=== PATIENT | male | born 2000 | race Two or more races ===

== ENCOUNTER 2023-06-22 10:15 | Emergency (ER) | payer OTHER ==
[~2023-06-22] VITALS: Ht 157.5 cm; Wt 54.4 kg
== END 2023-06-22 12:13 | disposition home or self-care (01) ==
LOC: ER 10:15
DX: L03.031 Cellulitis of right toe (principal); S90.461A Insect bite (nonvenomous), right great toe, initial encounter; W57.XXXA Bitten or stung by nonvenomous insect and other nonvenomous arthropods, initial encounter; Y93.89 Activity, other specified; Y92.832 Beach as the place of occurrence of the external cause; Y99.9 Unspecified external cause status